=== PATIENT | male | born 1995 | race Two or more races ===

== ENCOUNTER 2024-07-12 23:34 | Emergency (ER) | payer SELFPAY ==
[~2024-07-12] VITALS: Ht 175.3 cm; Wt 83.9 kg
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
--- NOTE | 2024-07-12 23:42 | NUR ---
Dr. Judge at bedside for MSE.
[2024-07-12] MEDS ORDERED: KETOROLAC TROMETHAMINE 60 MG INJ IM ONE (23:49)
[2024-07-12] MEDS ORDERED: TDAP DIPH,PERTUSS,TET VAC/PF 0.5 ML DISP.SYRIN IM ONE (23:49)
[2024-07-12] MEDS: KETOROLAC TROMETHAMINE 60 MG INJ IM ONE (23:55)
[2024-07-12] MEDS: TDAP DIPH,PERTUSS,TET VAC/PF 0.5 ML DISP.SYRIN IM ONE (23:56)
[2024-07-12] MEDS ORDERED: NEOMY/BACITRA/POLYMYXIN B OINT UD PACKET TP ONE (23:58)
[2024-07-13] MEDS ORDERED: ONDANSETRON 4 MG/2 ML VIAL ONE (00:08)
[2024-07-13] MEDS ORDERED: MORPHINE SULFATE 4 MG/1 ML DISP.SYRIN ONE (00:08)
[2024-07-13] MEDS ORDERED: MORPHINE SULFATE 2 MG/1 ML DISP.SYRIN ONE (00:09)
[2024-07-13] MEDS: MORPHINE SULFATE 4 MG/1 ML DISP.SYRIN IV ONE (00:18)
[2024-07-13] MEDS: ONDANSETRON ODT 4 MG TAB.RAPDIS SL ONE (00:18)
[2024-07-13] MEDS ORDERED: KETAMINE HCL 500 MG/5 ML VIAL ONE (00:30)
[2024-07-13] MEDS ORDERED: KETAMINE HCL 500 MG/10 ML INJ IV ONE (00:30)
[2024-07-13] MEDS: NEOMY/BACITRA/POLYMYXIN B OINT UD PACKET TP ONE (00:43)
[2024-07-13] MEDS: KETAMINE HCL 500 MG/10 ML INJ IV ONE (00:44)
[2024-07-13] MEDS ORDERED: IBUP-1955 PO (00:49)
[2024-07-13] MEDS ORDERED: HYDR-3972 PO (00:49)
--- NOTE | 2024-07-13 02:04 | NUR ---
Patient discharged to home in stable condition. Written and verbal after care instructions given. Patient verbalizes understanding of instructions. Stressed follow up or return to ER for worsening s/s. Patient wheeled out of the ER . All belongings with patient.
[2024-07-13 02:05] VITALS: BP 130/72; O2SAT 98
== END 2024-07-13 02:10 | disposition home or self-care (01) ==
LOC: ER 23:45
DX: T25.221A Burn of second degree of right foot, initial encounter (principal); X19.XXXA Contact with other heat and hot substances, initial encounter; Y93.89 Activity, other specified; Y92.89 Other specified places as the place of occurrence of the external cause; Y99.8 Other external cause status
CPT/HCPCS: 99284; 90715; 16020; 90471; 96372; 96374; 96375; J1885; J3490; J2405; J2270 ×2; A4606; A4663